=== PATIENT | male | born 1965 | race Two or more races ===

== ENCOUNTER → 2017-01-22 | Outpatient (CLI) | payer OTHER ==
--- NOTE | 2017-01-22 16:52 | KCIC ---
INDICATION: Positive PPD TECHNIQUE: PA 1 view chest radiograph was obtained. No comparison is available. FINDINGS: There is no consolidation. There is no nodule or cavitary lesion. There is no pleural effusion. The heart is not enlarged. There is no heart failure. There are old right fourth through sixth rib fractures. IMPRESSION: No acute thoracic findings Electronically signed by: Gera Snyder MD (01/22/2017 4:48 PM) [id number]
== END | disposition home or self-care (01) ==
LOC: KCIC 16:35
PROVIDERS: ATTEND Family Medicine
DX: R76.11 Nonspecific reaction to tuberculin skin test without active tuberculosis (principal)
CPT/HCPCS: 71010